=== PATIENT | male | born 1965 | race Caucasian/White ===

== ENCOUNTER 2023-02-27 08:18 | Emergency (ER) | payer BC, OTHER ==
[~2023-02-27] VITALS: Ht 167.6 cm; Wt 120.2 kg
[2023-02-27] MEDS ORDERED: ACETAMINOPHEN 325 MG TAB PO ONE ×3 (08:45→10:00)
[2023-02-27] MEDS ORDERED: CYCLOBENZAPRINE10 MG PO (10:01)
[2023-02-27] MEDS ORDERED: KETOROLAC TROME10 MG PO (10:01)
[2023-02-27 10:26] VITALS: BP 130/87; PULSE 80; RESP 16; TEMP 98.6; O2SAT 100
== END 2023-02-27 10:22 | disposition home or self-care (01) ==
LOC: ER 08:31
DX: R07.89 Other chest pain (principal); R09.1 Pleurisy; S20.212A Contusion of left front wall of thorax, initial encounter; R05.9 Cough, unspecified
CPT/HCPCS: 71250; 74176; 99283